=== PATIENT | male | born 1940 | race Caucasian/White ===

== ENCOUNTER → 2017-07-23 | Outpatient (CLI) | payer MEDICARE ==
[~2017-07-23] MED LIST: IOPAMIDOL 76% 75 ML INFUS BTL 75 ML ONE
--- NOTE | 2017-07-23 15:59 | RADIOLOGY IMAGING REPORT ---
FACILITY: [facility] PATIENT NAME: Brenton Ovalle : 1940 MR: [id number] V: [id number] EXAM DATE: ORDERING PHYSICIAN: OUMOU STEVENS TECHNOLOGIST: Location: [facility] Patient: Brenton Ovalle : 1940 Visit/Account:[id number] Date of Sevice: 07/23/2017 EXAMINATION: Head CT without IV contrast Head CT with IV contrast HISTORY: Unilateral headache, hypertension, cardiovascular disease TECHNIQUE: Contiguous axial images were obtained from the skull base to the vertex before and after IV contrast. Sagittal and coronal reformatted images are also submitted. Dose Lowering Technique One of the following dose optimization techniques was utilized in the performance of this exam: Autom ated exposure control; adjustment of the mA and/or kV according to the patient's size; or use of an i terative reconstruction technique. Specific details can be referenced in the facility's radiology C T exam operational policy. CONTRAST: 75 mL of IV Isovue-370 COMPARISON: None. FINDINGS: Brain volume: There is moderate diffuse central cortical atrophy present Ventricles: Moderate diffuse central cortical atrophy Acute ischemic changes: None. Hemorrhage: None. Masses / edema: None. Enhancement: Normal. Titus-white: Negative. White matter: Normal. Vessels: Calcifications in the carotid siphons and basilar artery Extra-axial: Negative. Calvarium / scalp: Negative. Skull base / visualized face: Negative. Visualized sinuses / orbits: Negative. IMPRESSION: Moderate diffuse central cortical atrophy Calcination occasions in the carotid siphons and basilar artery Report Dictated By: Mariel Garza MD at 07/23/2017 3:49 PM Report E-Signed By: Mariel Garza MD at 07/23/2017 3:55 PM WSN:[email or web address]
== END ==
LOC: CT 01:03
PROVIDERS: ATTEND Nurse Practitioner Family
DX: G31.9 Degenerative disease of nervous system, unspecified (principal); I65.29 Occlusion and stenosis of unspecified carotid artery
CPT/HCPCS: 36415; 70470; 82565; Q9967

== ENCOUNTER → 2017-08-01 | Outpatient (CLI) | payer MEDICARE ==
--- NOTE | 2017-08-01 17:37 | RADIOLOGY IMAGING REPORT ---
FACILITY: [facility] PATIENT NAME: Brenton Ovalle : 1940 MR: [id number] V: [id number] EXAM DATE: ORDERING PHYSICIAN: OUMOU STEVENS TECHNOLOGIST: Location: [facility] Patient: Brenton Ovalle : 1940 Visit/Account:[id number] Date of Sevice: 08/01/2017 Carotid artery Doppler duplex ultrasound scan. HISTORY: Headaches, dizziness. COMPARISON: 12/14/2007. A color flow Doppler duplex ultrasound scan with spectral analysis was performed on the carotid and v ertebral arteries bilaterally. Measurement of carotid stenosis is based on velocity parameters that correlate the residual internal carotid diameter with [place] Symptomatic Carotid Endarterecto my Trial (NASCET)- based stenosis levels. Right carotid peak systolic velocities are as follows: Superior right ICA - 59 cm/sec. Mid right ICA - 59 cm/sec. Proximal right ICA - 61 cm/sec. Right carotid bulb - 68 cm/sec. Superior right CCA - 66 cm/sec. Mid right CCA- 60 cm/sec. Inferior right CCA- 81 cm/sec. Proximal right ECA- 75 cm/sec. Mid right vertebral- 54 cm/sec. Right ICA/CCA ratio- 1.0 ( normal < 1.5 ). Antegrade right vertebral artery flow- YES. Left carotid peak systolic velocities are as follows: Superior left ICA - 66 cm/sec. Mid left ICA- 75 cm/sec. Proximal left ICA- 66 cm/sec. Left carotid bulb- 58 cm/sec. Superior left CCA- 63 cm/sec. Mid left CCA- 73 cm/sec. Inferior left CCA- 63 cm/sec. Proximal left ECA- 96 cm/sec. Mid left vertebral- 56 cm/sec. Left ICA/CCA ratio- 1.0 ( normal < 1.5). Antegrade left vertebral artery flow- YES. Partially calcified plaques are present in the carotid bulbs and proximal internal carotid arteries b ilaterally resulting in 30-50% stenoses by visual criteria. Carotid velocities are similar compared t o previous. 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
== END ==
LOC: US 01:05
PROVIDERS: ATTEND Nurse Practitioner Family
DX: I65.23 Occlusion and stenosis of bilateral carotid arteries (principal)
CPT/HCPCS: 93880

== ENCOUNTER → 2018-12-01 | Outpatient (CLI) | payer MEDICARE ==
[~2018-12-01] MED LIST changes: +ASPI-1471 PO; +ATOR40TA69 PO; +AZEL137S NS; +BARIUM SULFATE 148 GM POWDER ONE; +BARIUM SULFATE 240 ML ORAL SUS (NECTAR) ONE; +CHOL200074 PO; +FLUT16SP19; -IOPAMIDOL 76% 75 ML INFUS BTL 75 ML ONE; +LEVO25TA61 PO; +MESA0.374 PO; +MILK1CAP4 PO; +MONT10TA PO; +OMEP-126 PO
--- NOTE | 2018-12-01 14:31 | SLP MODIFIED BARIUM SWALLOW ---
MODIFIED BARIUM SWALLOW STUDY REPORT Ordering Physician: HARVEY WOO PA-C Clinician: Yoly Hawley MS, CCC-ACID SPLICER Type of Assessment: [facility] Patient: Brenton Ovalle : 1940, 78yo Evaluation Date: 10-20-18 BACKGROUND The patient is an 78 year-old male who presents for an outpatient modified barium swallow study (MBSS) due to history of dysphagia with continuing symptoms including globus sensation and what he refers to as as "throat constriction". The patient has a PMHx significant for excessive/thick mucous in throat, GERD. She reports she is now largely symptom free d/t diet changes. She has no recent hx of pneumonia. MODIFIED BARIUM SWALLOW ASSESSMENT Diagnosis: dysphagia Past Medical Hx: GERD Pain with Swallow: Denies but does report intermittent sore throat LOC / Participation: Alert and cooperative. Follows instructions: Yes Orientation: A&O x4 Sialorrhea: No Xerostomia: No Oral Hygiene: WFL Supplemental Oxygen Use: No COPD Dx: No Overall Impression: Possible esophageal dysphagia. No oral or pharngeal dysphagia witnessed. No laryngeal penetration or aspiration witnessed. Barium pill lodged in mid/upper/lower esophagus. Pt reported the feeling of the pill lodging in the esophagus was similar to the feeling he gets when he has trouble swallowing food and feels "throat constriction". In conjunction with radiology, the pt was seated in the lateral view. The following consistencies were trialed: thin liquids via cup sip, pureed solids, mechanically altered solids, advanced solids, mixed consistencies (thin liquids, mechanical soft foods), and a 1cm barium pill paired with thin liquids. Oral phase: WNL. No abnormal structure of function witnessed. Pharyngeal phase: WNL. No abnormal structure of function witnessed. Esophageal phase: The barium pill had some difficultly passing through the esophagus and lodged in the upper, mid, and lower esophagus. Clearance was achieved with multiple (5-6) thin liquid swallows. Pt reported the feeling of the pill lodging in his esophagus was similar to the feeling he gets when he has trouble swallowing food and feels "throat constriction". Penetration/Aspiration Scale (PAS)*: All trialed consistencies: Score of 1; Material does not enter airway *(Felyk et al. 1996) SUMMARY and RECOMMENDATIONS No oral or pharyngeal dysphagia witnessed. No laryngeal penetration/aspiration witnessed. Possible esophageal dysphagia witnessed. Aspiration Risk: Low; no abnormal structure/function witnessed. Dysphagia Outcome Severity Scale: 0; Normal swallowing mechanism. RECOMMENDATIONS Speech Therapy Need : Not at this time Further Assessment: Esophagram may be appropriate d/t some esophageal function during barium pill trial and symptoms consistent with esophageal dysphagia Thank you for this referral. Please call [phone] to contact speech therapy at [facility] Yoly Hawley M.S., [facility]-ACID SPLICER Speech Therapist TYRON
--- NOTE | 2018-12-01 15:38 | RADIOLOGY IMAGING REPORT ---
FACILITY: [facility] PATIENT NAME: Brenton Ovalle : 1940 MR: [id number] V: [id number] EXAM DATE: ORDERING PHYSICIAN: HARVEY WOO TECHNOLOGIST: Location: [facility] Patient: Brenton Ovalle : 1940 Visit/Account:[id number] Date of Sevice: 12/01/2018 Videofluoroscopic modified barium swallow study Indication: Dysphagia Findings: Various solid and liquid barium coated substances were administered to the patient by the [facility] therapist. The study was directly monitored by Dr. Shaikh. There is no chuy aspiration or significant laryngeal penetration. Refer to speech pathology notes for full description. A fluoroscopy exposure of 1143.43 mcGym2 DAP was recorded. IMPRESSION: Normal video fluoroscopic assisted swallowing study as above. Report Dictated By: Zak Shaikh at 12/01/2018 3:29 PM Report E-Signed By: Zak Shaikh at 12/01/2018 3:30 PM WSN:[email or web address]
== END ==
LOC: RAD 11-24 00:55
PROVIDERS: ATTEND Physician Assistant
DX: R13.10 Dysphagia, unspecified (principal)
CPT/HCPCS: 74230